=== PATIENT | female | born 1955 | race Caucasian/White ===

== ENCOUNTER 2020-09-11 13:06 | Outpatient (CLI) | payer OTHER, SELFPAY ==
--- NOTE | 2020-09-11 13:13 | MM_ITS ---
WS: [id number] BILATERAL SCREENING DIGITAL MAMMOGRAM WITH CAD HISTORY: SCREENING COMPARISON: 07/17/2018 and 06/17/2017 Bilateral CC and MLO views submitted. Computer aided detection analyzed. Breast composition: There are scattered areas of fibroglandular density. No suspicious masses, microc alcifications or architectural distortion. Benign scattered calcifications in each breast. MM/[id number] IMPRESSION: BI-RADS: 2-Benign FOLLOW UP: 1 Year Follow-up
== END 2020-09-11 13:07 | disposition home or self-care (01) ==
LOC: RADSHAW 13:10
PROVIDERS: Family Provider Internal Medicine; PCP Internal Medicine; Visit Provider Internal Medicine
DX: Z12.31 Encounter for screening mammogram for malignant neoplasm of breast (principal)
CPT/HCPCS: 77067

== ENCOUNTER → 2020-11-30 10:09 | Outpatient (BNVA) | payer OTHER, SELFPAY | PROVIDERS: Family Provider Internal Medicine; PCP Internal Medicine; Referring Provider Emergency Medicine Emergency Medical Services; Visit Provider Anesthesiology Pain Medicine | DX: G89.29 Other chronic pain (principal); M47.816 Spondylosis without myelopathy or radiculopathy, lumbar region; M54.42 Lumbago with sciatica, left side; M43.10 Spondylolisthesis, site unspecified | CPT/HCPCS: 99205 ==

== ENCOUNTER → 2020-12-13 13:34 | Outpatient (BNVA) | payer OTHER, SELFPAY | PROVIDERS: Family Provider Internal Medicine; PCP Emergency Medicine Emergency Medical Services; Visit Provider Anesthesiology Pain Medicine | DX: M47.816 Spondylosis without myelopathy or radiculopathy, lumbar region (principal) | CPT/HCPCS: 64493; 64494; 64495; J3490 ==

== ENCOUNTER → 2020-12-27 10:06 | Outpatient (BNVA) | payer OTHER, SELFPAY | PROVIDERS: Family Provider Internal Medicine; PCP Emergency Medicine Emergency Medical Services; Visit Provider Anesthesiology Pain Medicine | DX: M47.816 Spondylosis without myelopathy or radiculopathy, lumbar region (principal); M43.10 Spondylolisthesis, site unspecified | CPT/HCPCS: 99214 ==

== ENCOUNTER 2021-05-04 16:41 | Emergency (ER) | payer OTHER, SELFPAY ==
[2021-05-04 16:59] VITALS: BP 159/101; PULSE 87; RESP 16; TEMP 36.8; O2SAT 97
--- NOTE | 2021-05-04 17:06 | W.ED.WOUNDLC ---
Documented by User: DERRICK Nj 05/04/21 20:05 HPI - Wound/Laceration General: Chief Complaint: Wound/Laceration Stated Complaint: Strange brusing, not much pain Time Seen by Provider: 05/04/21 17:06 History of Present Illness: 65-year-old female comes in today for complaints of discoloration to the fourth and second digit on the right hand. Patient first noted some discoloration on the middle finger 3 days ago since then it has become dark in color. Patient denies any prolonged outdoor stay in the cold weather. Patient does have a history of hypertension, hyperlipidemia, and diabetes mellitus type 2. Patient reports no previous symptoms. Review of Systems Reinaldo/Lymph: Reports: easy bruising and other (Discoloration of the third and fifth digit of the right hand) PFSH ED PFSH: Medical History HTN (hypertension) Family History Father Cancer Mother Heart disease Diabetes Social History History of recent travel: No Physical Exam Const: COMMON NORMALS: alert HENMT: COMMON NORMALS: normocephalic HEAD & SCALP: normocephalic Neck/C-Spine: COMMON NORMALS: full ROM Resp: COMMON NORMALS: normal respiratory effort and clear to auscultation bilaterally AUSCULTATION: clear to auscultation bilaterally Cardio: COMMON NORMALS: regular rate and regular rhythm RATE: regular rate RHYTHM: regular rhythm Extremity: RIGHT UPPER EXTREMITY: Yes hand & digits (Patient has normal range of motion of the hand, partial discoloration of th) Right hand and digits: Yes inspection, Yes palpation, Yes ROM exam, Yes neurovascular exam (Bluish discoloration to the second and fourth digit) and Yes tendon exam Neuro: SENSORIUM/ORIENTATION: Yes alert Course Vital Signs: Vital signs: Vital Signs Temperature 98.2 F 05/04/21 16:59 Pulse Rate 84 05/04/21 20:34 Respiratory Rate 20 H 05/04/21 20:34 Blood Pressure 138/83 05/04/21 20:34 Pulse Oximetry 97 05/04/21 20:34 MDM - Wound/Laceration Medical Decision Making Patient came in for concerns of discoloration to the second and fourth digit. Patient denies any injury. Patient has ecchymosis to the fourth and second digit. Patient reports no history similar problems. Patient does have blood pressure and type 2 diabetes. Patient has normal range of motion and reports some discomfort to the fingers. Differential diagnosis includes Raynaud's phenomena, vasculitis, Buerger's disease, contusion. Laboratory values were unremarkable. Sed rate was 23. Arterial ultrasound of the upper extremity was unremarkable. I discussed patient with Dr. Patino he recommended treating for vasculitis and agreed with plan for starting a calcium channel shana. I will place patient on amlodipine 2-1/2 mg daily and start on 60 mg of prednisone daily with need for follow-up with him 5 days with primary care. Patient reported understanding of care plan. Lab Data : 05/04/21 17:34 05/04/21 17:34 Radiology Impressions Duplex Scan Upper Extremity Artery 05/04/21 17:19 IMPRESSION: No acute findings. Laboratory Results WBC 8.4 10^3/uL (4.0-10.0) 05/04/21 17:34 RBC 4.30 10^6/uL (4.1-5.3) 05/04/21 17:34 Hgb 13.6 g/dL (11.5-15.3) 05/04/21 17:34 Hct 41.0 % (37.0-47.0) 05/04/21 17:34 MCV 95.3 fl (81-99) 05/04/21 17:34 MCH 31.6 pg (28.0-34.0) 05/04/21 17:34 MCHC 33.2 g/dL (30.0-36.0) 05/04/21 17:34 RDW 12.5 % (12.1-15.1) 05/04/21 17:34 Plt Count 292 10^3/cmm (130-400) 05/04/21 17:34 MPV 9.4 fL (7.4-10.4) 05/04/21 17:34 Neut % (Auto) 44.3 % 05/04/21 17:34 Lymph % (Auto) 45.4 % 05/04/21 17:34 [place] % (Auto) 6.8 % 05/04/21 17:34 Eos % (Auto) 2.4 % 05/04/21 17:34 Baso % (Auto) 0.7 % 05/04/21 17:34 Neut # (Auto) 3.74 10^3/uL (1.8-7.7) 05/04/21 17:34 Lymph # (Auto) 3.8 10^3/uL (0.8-4.8) 05/04/21 17:34 [place] # (Auto) 0.6 10^3/uL (0.2-0.9) 05/04/21 17:34 Eos # (Auto) 0.2 10^3/uL (0.0-0.8) 05/04/21 17:34 Baso # (Auto) 0.1 10^3/uL (0.0-0.1) 05/04/21 17:34 Nucleated RBC % (auto) 0 % 05/04/21 17:34 Nucleated RBCs # 0.0 /100WBC 05/04/21 17:34 ESR 23 mm/hr (0-15) H 05/04/21 17:34 PT 12.80 SECONDS (12.1-14.9) 05/04/21 17:34 INR 0.94 (0.8-1.2) 05/04/21 17:34 APTT 33.0 SECONDS (23.9-36.7) 05/04/21 17:34 Sodium 139 mmol/L (136-145) 05/04/21 17:34 Potassium 3.8 mmol/L (3.5-5.1) 05/04/21 17:34 Chloride 95 mmol/L (98-107) L 05/04/21 17:34 Carbon Dioxide 27 mmol/L (22-29) 05/04/21 17:34 Anion Gap 20.8 (5-19) H 05/04/21 17:34 BUN 11 mg/dL (8-23) 05/04/21 17:34 Creatinine 0.6 mg/dL (0.5-0.9) 05/04/21 17:34 GFR Calculation 100.6 mL/min (90-130) 05/04/21 17:34 Glucose 96 mg/dL (65-115) 05/04/21 17:34 Calculated Osmolality 287 mOsm/kg (285-295) 05/04/21 17:34 Calcium 10.4 mg/dL (8.5-10.5) 05/04/21 17:34 Total Bilirubin 0.3 mg/dL (0.15-1.2) 05/04/21 17:34 AST 19 U/L (0-32) 05/04/21 17:34 ALT 19 U/L (0-33) 05/04/21 17:34 Alkaline Phosphatase 72 IU/L (35-105) 05/04/21 17:34 C-Reactive Protein 1.3 mg/L (0.0-4.9) 05/04/21 17:34 Total Protein 7.7 g/dL (6.6-8.7) 05/04/21 17:34 Albumin 4.8 g/dL (3.5-5.2) 05/04/21 17:34 Globulin 2.9 g/dL (1.3-4.6) 05/04/21 17:34 Discharge Plan Discharge Patient Disposition: Home Clinical Impression: Raynaud's phenomenon Qualifiers: Raynaud?s-associated gangrene presence: without gangrene Qualified Code(s): I73.00 - Raynaud's syndrome without gangrene Condition: Stable Prescriptions: New prednisone 20 mg tablet 60 mg PO DAILY 5 Days Qty: 15 0RF amlodipine 2.5 mg tablet 2.5 mg PO DAILY Qty: 30 0RF No Action rabeprazole 20 mg tablet,delayed release (DR/EC) 20 mg PO DAILY 0RF lisinopril 20 mg tablet 20 mg PO DAILY 0RF hydrochlorothiazide 25 mg tablet 25 mg PO DAILY 0RF cholecalciferol (vitamin D3) 1,250 mcg (50,000 unit) capsule 1,250 mcg PO DAILY 0RF multivitamin Tablet 1 tab PO DAILY 0RF aspirin [Adult Low Dose Aspirin] 81 mg tablet,delayed release (DR/EC) 81 mg PO DAILY 0RF Trulicity 1.5 mg/0.5 mL pen injector 1.5 mg SUBCUT .Q Weekly 0RF ursodiol 500 mg tablet 500 mg PO DAILY 0RF rosuvastatin 5 mg tablet 5 mg PO DAILY 0RF metformin 500 mg tablet extended release 24 hr 1,000 mg PO DAILY 0RF isosorbide mononitrate 30 mg tablet extended release 24 hr 15 mg PO DAILY 0RF vitamin B complex [B Complex-Vitamin B12] Tablet 1 tab PO DAILY 0RF Discharge Orders: Discharge ED (Routine); Ordered 05/04/21 Ordered By: Tony Meeks Referrals: Tigist Bang MD [Family Provider] - Josef Quintero DO [Primary Care Provider] - Discharge Diet: Usual diet Discharge Activity: Increase activity as tolerated Activity Restrictions/Additional Instructions: Home and rest. Drink plenty of water with medication. Follow-up with primary care in 3 to 5 days. The small vessels of your hands are becoming restricted causing decreased blood flow. This sometimes can be caused by rheumatic disease, inflammation of the blood vessels, or a highly sensitive vascular response to sensations. We have treated you with amlodipine which is a calcium channel shana that should help relax the blood vessels to improve blood flow. We have also started you on a steroid to help decrease inflammation. You need to take a whole aspirin, 325 mg, daily. I would recommend you take the aspirin and the steroid with food on your stomach. Follow-up with primary care. Return to the ER for new concerns. Coding Level of Care Code ED Staff Air Tactical Officer for Chg Fwd Exam Detailed Medical Decision Making Moderate Complexity Time Spent (min) 30 Documented by User: William Patino DO 05/05/21 01:54 HPI - Wound/Laceration General: Chief Complaint: Wound/Laceration Stated Complaint: Strange brusing, not much pain Time Seen by Provider: 05/04/21 17:06 PFSH ED PFSH: Medical History HTN (hypertension) Family History Father Cancer Mother Heart disease Diabetes Social History History of recent travel: No Course Vital Signs: Vital signs: Vital Signs Temperature 98.2 F 05/04/21 16:59 Pulse Rate 84 05/04/21 20:34 Respiratory Rate 20 H 05/04/21 20:34 Blood Pressure 138/83 05/04/21 20:34 Pulse Oximetry 97 05/04/21 20:34 MDM - Wound/Laceration Medical Decision Making Patient came in for concerns of discoloration to the second and fourth digit. Patient denies any injury. Patient has ecchymosis to the fourth and second digit. Patient reports no history similar problems. Patient does have blood pressure and type 2 diabetes. Patient has normal range of motion and reports some discomfort to the fingers. Differential diagnosis includes Raynaud's phenomena, vasculitis, Buerger's disease, contusion. Laboratory values were unremarkable. Sed rate was 23. Arterial ultrasound of the upper extremity was unremarkable. I discussed patient with Dr. Patino he recommended treating for vasculitis and agreed with plan for starting a calcium channel shana. I will place patient on amlodipine 2-1/2 mg daily and start on 60 mg of prednisone daily with need for follow-up with him 5 days with primary care. Patient reported understanding of care plan. This patient was originally seen by DERRICK Anderson.? I agree with his history, evaluation, and treatment. Lab Data : 05/04/21 17:34 05/04/21 17:34 Radiology Impressions Duplex Scan Upper Extremity Artery 05/04/21 17:19 IMPRESSION: No acute findings. Laboratory Results WBC 8.4 10^3/uL (4.0-10.0) 05/04/21 17:34 RBC 4.30 10^6/uL (4.1-5.3) 05/04/21 17:34 Hgb 13.6 g/dL (11.5-15.3) 05/04/21 17:34 Hct 41.0 % (37.0-47.0) 05/04/21 17:34 MCV 95.3 fl (81-99) 05/04/21 17:34 MCH 31.6 pg (28.0-34.0) 05/04/21 17:34 MCHC 33.2 g/dL (30.0-36.0) 05/04/21 17:34 RDW 12.5 % (12.1-15.1) 05/04/21 17:34 Plt Count 292 10^3/cmm (130-400) 05/04/21 17:34 MPV 9.4 fL (7.4-10.4) 05/04/21 17:34 Neut % (Auto) 44.3 % 05/04/21 17:34 Lymph % (Auto) 45.4 % 05/04/21 17:34 [place] % (Auto) 6.8 % 05/04/21 17:34 Eos % (Auto) 2.4 % 05/04/21 17:34 Baso % (Auto) 0.7 % 05/04/21 17:34 Neut # (Auto) 3.74 10^3/uL (1.8-7.7) 05/04/21 17:34 Lymph # (Auto) 3.8 10^3/uL (0.8-4.8) 05/04/21 17:34 [place] # (Auto) 0.6 10^3/uL (0.2-0.9) 05/04/21 17:34 Eos # (Auto) 0.2 10^3/uL (0.0-0.8) 05/04/21 17:34 Baso # (Auto) 0.1 10^3/uL (0.0-0.1) 05/04/21 17:34 Nucleated RBC % (auto) 0 % 05/04/21 17:34 Nucleated RBCs # 0.0 /100WBC 05/04/21 17:34 ESR 23 mm/hr (0-15) H 05/04/21 17:34 PT 12.80 SECONDS (12.1-14.9) 05/04/21 17:34 INR 0.94 (0.8-1.2) 05/04/21 17:34 APTT 33.0 SECONDS (23.9-36.7) 05/04/21 17:34 Sodium 139 mmol/L (136-145) 05/04/21 17:34 Potassium 3.8 mmol/L (3.5-5.1) 05/04/21 17:34 Chloride 95 mmol/L (98-107) L 05/04/21 17:34 Carbon Dioxide 27 mmol/L (22-29) 05/04/21 17:34 Anion Gap 20.8 (5-19) H 05/04/21 17:34 BUN 11 mg/dL (8-23) 05/04/21 17:34 Creatinine 0.6 mg/dL (0.5-0.9) 05/04/21 17:34 GFR Calculation 100.6 mL/min (90-130) 05/04/21 17:34 Glucose 96 mg/dL (65-115) 05/04/21 17:34 Calculated Osmolality 287 mOsm/kg (285-295) 05/04/21 17:34 Calcium 10.4 mg/dL (8.5-10.5) 05/04/21 17:34 Total Bilirubin 0.3 mg/dL (0.15-1.2) 05/04/21 17:34 AST 19 U/L (0-32) 05/04/21 17:34 ALT 19 U/L (0-33) 05/04/21 17:34 Alkaline Phosphatase 72 IU/L (35-105) 05/04/21 17:34 C-Reactive Protein 1.3 mg/L (0.0-4.9) 05/04/21 17:34 Total Protein 7.7 g/dL (6.6-8.7) 05/04/21 17:34 Albumin 4.8 g/dL (3.5-5.2) 05/04/21 17:34 Globulin 2.9 g/dL (1.3-4.6) 05/04/21 17:34 Discharge Plan Discharge Patient Disposition: Home Clinical Impression: Raynaud's phenomenon Qualifiers: Raynaud?s-associated gangrene presence: without gangrene Qualified Code(s): I73.00 - Raynaud's syndrome without gangrene Condition: Stable Prescriptions: New prednisone 20 mg tablet 60 mg PO DAILY 5 Days Qty: 15 0RF amlodipine 2.5 mg tablet 2.5 mg PO DAILY Qty: 30 0RF No Action rabeprazole 20 mg tablet,delayed release (DR/EC) 20 mg PO DAILY 0RF lisinopril 20 mg tablet 20 mg PO DAILY 0RF hydrochlorothiazide 25 mg tablet 25 mg PO DAILY 0RF cholecalciferol (vitamin D3) 1,250 mcg (50,000 unit) capsule 1,250 mcg PO DAILY 0RF multivitamin Tablet 1 tab PO DAILY 0RF aspirin [Adult Low Dose Aspirin] 81 mg tablet,delayed release (DR/EC) 81 mg PO DAILY 0RF Trulicity 1.5 mg/0.5 mL pen injector 1.5 mg SUBCUT .Q Weekly 0RF ursodiol 500 mg tablet 500 mg PO DAILY 0RF rosuvastatin 5 mg tablet 5 mg PO DAILY 0RF metformin 500 mg tablet extended release 24 hr 1,000 mg PO DAILY 0RF isosorbide mononitrate 30 mg tablet extended release 24 hr 15 mg PO DAILY 0RF vitamin B complex [B Complex-Vitamin B12] Tablet 1 tab PO DAILY 0RF Discharge Orders: Discharge ED (Routine); Ordered 05/04/21 Ordered By: Tony Meeks Referrals: Tigist Bang MD [Family Provider] - Josef Quintero DO [Primary Care Provider] - Discharge Diet: Usual diet Discharge Activity: Increase activity as tolerated Activity Restrictions/Additional Instructions: Home and rest. Drink plenty of water with medication. Follow-up with primary care in 3 to 5 days. The small vessels of your hands are becoming restricted causing decreased blood flow. This sometimes can be caused by rheumatic disease, inflammation of the blood vessels, or a highly sensitive vascular response to sensations. We have treated you with amlodipine which is a calcium channel shana that should help relax the blood vessels to improve blood flow. We have also started you on a steroid to help decrease inflammation. You need to take a whole aspirin, 325 mg, daily. I would recommend you take the aspirin and the steroid with food on your stomach. Follow-up with primary care. Return to the ER for new concerns. Coding Level of Care Code ED Staff Air Tactical Officer for [place] Fwd Exam Detailed Medical Decision Making Moderate Complexity Time Spent (min) 30
--- NOTE | 2021-05-04 17:19 | USR_ITS ---
PROCEDURE INFORMATION: Exam: US Duplex Right Upper Extremity Arteries Exam date and time: 05/04/2021 5:19 PM Age: 65 years old Clinical indication: Other: RT arm pain and discoloration of fingers; Arm, lower; Right; Additional info: Discoloration of digits, raynauds phen. TECHNIQUE: Imaging protocol: Right Real-time ultrasound scan of the arteries of the right upper extremity with 2-D paul scale, color Doppler flow and spectral waveform analysis. COMPARISON: No relevant prior studies available. FINDINGS: Right subclavian artery: No occlusion or significant stenosis. Normal waveform. Right axillary artery: No occlusion or significant stenosis. Normal waveform. Right brachial artery: No occlusion or significant stenosis. Normal waveform. Right radial artery: No occlusion or significant stenosis. Normal waveform. Right ulnar artery: No occlusion or significant stenosis. Normal waveform. US/[place] [id number] IMPRESSION: No acute findings.
[2021-05-04 17:45] LABS: Basophils # 0.1 10^3/uL (0.0-0.1); Basophils % 0.7 %; Eosinophils # 0.2 10^3/uL (0.0-0.8); Eosinophils % 2.4 %; Hemoglobin 13.6 g/dL (11.5-15.3); Lymphocytes # 3.8 10^3/uL (0.8-4.8); Lymphocytes % 45.4 %; Mean Corpuscular HGB Conc 33.2 g/dL (30.0-36.0); Mean Corpuscular Hemoglobin 31.6 pg (28.0-34.0); Mean Corpuscular Volume 95.3 fl (81-99); Mean Platelet Volume 9.4 fL (7.4-10.4); Monocytes # 0.6 10^3/uL (0.2-0.9); Monocytes % 6.8 %; Neutrophils # 3.74 10^3/uL (1.8-7.7); Neutrophils % 44.3 %; Nucleated Red Blood Cells % 0 %; Platelet Count 292 10^3/cmm (130-400); Red Cell Distribution Width 12.5 % (12.1-15.1); White Blood Count 8.4 10^3/uL (4.0-10.0)
[2021-05-04 17:58] LABS: INR 0.94 (0.8-1.2)
[2021-05-04 18:01] LABS: Erythrocyte Sedimentation Rate 23 mm/hr (0-15)
[2021-05-04 18:05] LABS: Alanine Aminotransferase 19 U/L (0-33); Albumin Level 4.8 g/dL (3.5-5.2); Alkaline Phosphatase 72 IU/L (35-105); Anion Gap 20.8 (5-19); Aspartate Amino Transferase 19 U/L (0-32); Blood Urea Nitrogen 11 mg/dL (8-23); C Reactive Protein 1.3 mg/L (0.0-4.9); Calcium 10.4 mg/dL (8.5-10.5); Carbon Dioxide 27 mmol/L (22-29); Chloride 95 mmol/L (98-107); Globulin 2.9 g/dL (1.3-4.6); Glomerular Filtration Rate 100.6 mL/min (90-130); Glucose 96 mg/dL (65-115); Osmolality Calculated 287 mOsm/kg (285-295); Potassium 3.8 mmol/L (3.5-5.1); Sodium 139 mmol/L (136-145); Total Bilirubin 0.3 mg/dL (0.15-1.2); Total Protein 7.7 g/dL (6.6-8.7)
[2021-05-04 20:34] VITALS: BP 138/83; PULSE 84; RESP 20; O2SAT 97
[2021-05-04] MEDS: amlodipine 5 mg Tablet 2.5 MG PO (20:34)
[2021-05-04] MEDS: predniSONE 20 mg Tablet 60 MG PO (20:34)
[2021-05-04] MEDS: aspirin 325 mg Tablet PO (20:34)
== END 2021-05-04 20:35 | disposition home or self-care (01) ==
PROVIDERS: Emergency Provider Nurse Practitioner Family; Family Provider Internal Medicine; PCP Emergency Medicine Emergency Medical Services
DX: I73.00 Raynaud's syndrome without gangrene (principal); Z79.82 Long term (current) use of aspirin; Z79.84 Long term (current) use of oral hypoglycemic drugs; I10 Essential (primary) hypertension
CPT/HCPCS: 80053; 85025; 85610; 85651; 85730; 86140; 93931; 99283; J7512

== ENCOUNTER 2021-08-06 13:22 | Emergency (ER) | payer OTHER, MEDICARE, SELFPAY ==
[2021-08-06 13:28] VITALS: BP 154/105; PULSE 90; RESP 18; TEMP 36.4; O2SAT 93; BMI 40.1
--- NOTE | 2021-08-06 13:36 | W.ED.CHESTPA ---
HPI - Chest Pain General: Chief Complaint: Chest Pain Stated Complaint: abnormal heart Time Seen by Provider: 08/06/21 13:36 History of Present Illness: Ms. Munson is a 65-year-old lady with history of hypertension, diabetes, hyperlipidemia who presents to the emergency department due to chest pain and abnormal EKG. She reports about 1 week history of perhaps increased indigestion though does have a history of frequent indigestion and approximately 3 days ago was hugged by her and felt and heard a popping sensation in the right lateral/anterior chest right under her breast. She immediately had discomfort which has persisted. This is sharp and aching in quality and worse with movement/bending over/deep inspiration. [facility] and [facility] x-ray and rib series which was negative however EKG was different than prior and they referred her to the emergency department. Intensity symptoms is moderate. Course has persisted. No other typical cardiac features. No other specific changes in health, exacerbating, or alleviating factors identified. Onset (ago): day(s) Timing of current episode: constant Onset: other Pain location: right chest Review of Systems General: Reports: 10 or more systems reviewed and unremarkable except in HPI and below PFSH ED PFSH: Medical History HTN (hypertension) Family History Father Cancer Mother Heart disease Diabetes Social History Smoking and tobacco status: former smoker History of recent travel: No Physical Exam Const: COMMON NORMALS: alert GENERAL APPEARANCE: cooperative and well developed HENMT: COMMON NORMALS: normocephalic and atraumatic HEAD & SCALP: normocephalic and atraumatic THROAT: posterior oropharynx normal Eye: COMMON NORMALS: conjunctivae normal CONJUNCTIVA: Yes conjunctivae normal SCLERA: sclerae normal Neck/C-Spine: COMMON NORMALS: supple GENERAL: Yes trachea midline Chest: OTHER: Tender to palpation right lateral ribs, mild, no crepitus or deformity appreciated Resp: COMMON NORMALS: clear to auscultation bilaterally EFFORT & INSPECTION: Yes able to speak in complete sentences AUSCULTATION: clear to auscultation bilaterally Cardio: COMMON NORMALS: regular rate and regular rhythm RATE: regular rate RHYTHM: regular rhythm GI: COMMON NORMALS: Soft to palpation PALPATION: Yes Soft to palpation and No Tenderness to palpation present (GI) PERCUSSION: normal to percussion Extremity: GENERAL: Yes normal exam except as noted and No edema Neuro: COMMON NORMALS: moves all extremities SENSORIUM/ORIENTATION: Yes alert and No Orientation impaired Psych: COMMON NORMALS: mental status grossly normal and Normal thought process present THOUGHT PROCESS: Normal thought process present Course ED course: - Patient was seen and evaluated by me at bedside - Patient placed on cardiac monitors, IV access obtained - Initial evaluation notable for end as above - Labs personally interpreted by me. EKG from 1334 end 1419 personally interpreted by me showing sinus rhythm with no STEMI. - Labs notable for no significant hematologic or metabolic abnormality to explain symptoms. Delta troponin negative. -[facility] obtained showing 1 view chest x-ray and right-sided rib series without acute pathology identified. - Upon serial reexamination after treatment the patient was similar - Based on patient history, evaluation, and testing as interpreted the most likely cause of the patient's condition is chest pain of his uncertain etiology. - The results of ED evaluation were discussed with the patient including prescriptions and/or symptomatic cares (if applicable) including appropriate and responsible use, followup plan, and return precautions. The patient verbalized understanding and felt safe for discharge. - Patient discharged in satisfactory condition. Note: Click bubbles or prepopulated giordano in note writing are used for assistance with data collection and billing and are inherently more limited than narrative and other text portions of this note. Please use narrative for additional clinical history and defer to narrative/free test for any case of contradictory information. If information appears in only free text or click bubble it should be considered present or absent as reported. Please contact note television writer for clarifications of clinical information or contradictory information. MDM is a brief summary, contradictory or erroneous seeming information should be clarified and full note should be reviewed. Vital Signs: Vital signs: Vital Signs Temperature 97.6 F 08/06/21 13:28 Pulse Rate 20 L 08/06/21 16:15 Respiratory Rate 86 H 08/06/21 16:15 Blood Pressure 134/92 08/06/21 16:15 Pulse Oximetry 99 08/06/21 16:15 MDM - Chest Pain Medical Decision Making 65-year-old lady presenting with atypical chest pain. No acute pathology identified on laboratory studies or previously obtained x-rays. Satisfactory for outpatient management with close cardiology follow-up. Medical Records I reviewed the patient's medical records. Lab Data I reviewed the patient's lab results. : 08/06/21 14:00 08/06/21 14:00 Laboratory Results WBC 8.4 10^3/uL (4.0-10.0) 08/06/21 14:00 RBC 4.25 10^6/uL (4.1-5.3) 08/06/21 14:00 Hgb 13.4 g/dL (11.5-15.3) 08/06/21 14:00 Hct 40.3 % (37.0-47.0) 08/06/21 14:00 MCV 94.8 fl (81-99) 08/06/21 14:00 MCH 31.5 pg (28.0-34.0) 08/06/21 14:00 MCHC 33.3 g/dL (30.0-36.0) 08/06/21 14:00 RDW 12.1 % (12.1-15.1) 08/06/21 14:00 Plt Count 314 10^3/cmm (130-400) 08/06/21 14:00 MPV 9.9 fL (7.4-10.4) 08/06/21 14:00 Neut % (Auto) 41.6 % 08/06/21 14:00 Lymph % (Auto) 48.9 % 08/06/21 14:00 [place] % (Auto) 6.4 % 08/06/21 14:00 Eos % (Auto) 2.1 % 08/06/21 14:00 Baso % (Auto) 0.8 % 08/06/21 14:00 Neut # (Auto) 3.50 10^3/uL (1.8-7.7) 08/06/21 14:00 Lymph # (Auto) 4.1 10^3/uL (0.8-4.8) 08/06/21 14:00 [place] # (Auto) 0.5 10^3/uL (0.2-0.9) 08/06/21 14:00 Eos # (Auto) 0.2 10^3/uL (0.0-0.8) 08/06/21 14:00 Baso # (Auto) 0.1 10^3/uL (0.0-0.1) 08/06/21 14:00 Nucleated RBC % (auto) 0 % 08/06/21 14:00 Nucleated RBCs # 0.0 /100WBC 08/06/21 14:00 D-Dimer 0.22 ug/mIFEU (0-0.59) 08/06/21 14:00 Sodium 137 mmol/L (136-145) 08/06/21 14:00 Potassium 3.6 mmol/L (3.5-5.1) 08/06/21 14:00 Chloride 96 mmol/L (98-107) L 08/06/21 14:00 Carbon Dioxide 28 mmol/L (22-29) 08/06/21 14:00 Anion Gap 16.6 (5-19) 08/06/21 14:00 BUN 11 mg/dL (8-23) 08/06/21 14:00 Creatinine 0.7 mg/dL (0.5-0.9) 08/06/21 14:00 GFR Calculation 84.2 mL/min (90-130) L 08/06/21 14:00 Glucose 89 mg/dL (65-115) 08/06/21 14:00 Calculated Osmolality 283 mOsm/kg (285-295) L 08/06/21 14:00 Calcium 10.2 mg/dL (8.5-10.5) 08/06/21 14:00 Total Bilirubin 0.4 mg/dL (0.15-1.2) 08/06/21 14:00 AST 19 U/L (0-32) 08/06/21 14:00 ALT 24 U/L (0-33) 08/06/21 14:00 Alkaline Phosphatase 73 IU/L (35-105) 08/06/21 14:00 Troponin T Baseline 8 ng/L (0-10) 08/06/21 14:00 Troponin T 120 Minute 7.01 ng/L (0-10) 08/06/21 15:51 Delta Troponin T -0.99 ABS# (0-10) L 08/06/21 15:51 NT-Pro-B Natriuret Pep 75 pg/mL (0-125) 08/06/21 14:00 Total Protein 7.8 g/dL (6.6-8.7) 08/06/21 14:00 Albumin 4.6 g/dL (3.5-5.2) 08/06/21 14:00 Globulin 3.2 g/dL (1.3-4.6) 08/06/21 14:00 Discharge Plan Discharge Patient Disposition: Home Clinical Impression: Chest pain Condition: Stable Prescriptions: No Action rabeprazole 20 mg tablet,delayed release (DR/EC) 20 mg PO DAILY 0RF lisinopril 20 mg tablet 20 mg PO DAILY 0RF hydrochlorothiazide 25 mg tablet 25 mg PO DAILY 0RF cholecalciferol (vitamin D3) 1,250 mcg (50,000 unit) capsule 1,250 mcg PO DAILY 0RF multivitamin Tablet 1 tab PO DAILY 0RF aspirin [Adult Low Dose Aspirin] 81 mg tablet,delayed release (DR/EC) 81 mg PO DAILY 0RF Trulicity 1.5 mg/0.5 mL pen injector 1.5 mg SUBCUT .Q Weekly 0RF ursodiol 500 mg tablet 500 mg PO DAILY 0RF rosuvastatin 5 mg tablet 5 mg PO DAILY 0RF metformin 500 mg tablet extended release 24 hr 1,000 mg PO DAILY 0RF isosorbide mononitrate 30 mg tablet extended release 24 hr 15 mg PO DAILY 0RF vitamin B complex [B Complex-Vitamin B12] Tablet 1 tab PO DAILY 0RF Discharge Orders: Discharge ED (Routine); Ordered 08/06/21 Ordered By: Cuauhtemoc Fernandes Referrals: Tigist Bang MD [Primary Care Provider] - Discharge Diet: Usual diet Discharge Activity: Resume usual activity Patient Instructions: Chest Pain (ED) Activity Restrictions/Additional Instructions: Thank you for visiting the emergency department. You were seen and evaluated for chest pain. The exact cause of your symptoms is unclear however would be atypical for cardiac cause. Given your medical history as well as changes in EKG I do believe that you need to require further testing in the outpatient setting. Please attend your cardiology appointment as scheduled. Please ensure, given the possibility of rib fracture, that you are taking deep breaths and decreasing risk of pneumonia. Return to the emergency department for worsening symptoms or anything else that you are concerned about a feel needs emergency department evaluation. Coding Level of Care Code ED Heating Plant Superintendent for Chg Fwd Exam Comprehensive
--- NOTE | 2021-08-06 13:48 | ECG_ITS ---
[facility] Test Date: 2021-08-06 Pat Name: Genny Munson Department: Room: Gender: Female Appraisal Technician: : 1955 Requested By: Cuauhtemoc Fernandes Order Number: [id number] Jessica MD: Eze Garcia M.D. Measurements Intervals [place] Rate: 75 P: 60 [place]: 158 QRS: -46 QRSD: 88 T: 61 QT: 395 QTc: 443 Interpretive Statements SINUS RHYTHM LEFT ANTERIOR FASCICULAR BLOCK [QRS AXIS <= -45, QR IN I, RS IN II] POSSIBLE ANTERIOR MYOCARDIAL INFARCTION , PROBABLY OLD [30 ms Q WAVE IN V3/V4, OR R < 0.2 mV IN V4] Compared to ECG 01/15/2018 13:59:44 Left anterior fascicular block now present Left-axis deviation no longer present Myocardial infarct finding still present Electronically Signed On 08-06-2021 16:33:15 CDT by Eze Garcia M.D. [email or web address]/store/[id number]
[2021-08-06 14:09] LABS: Basophils # 0.1 10^3/uL (0.0-0.1); Basophils % 0.8 %; Eosinophils # 0.2 10^3/uL (0.0-0.8); Eosinophils % 2.1 %; Hematocrit 40.3 % (37.0-47.0); Hemoglobin 13.4 g/dL (11.5-15.3); Lymphocytes # 4.1 10^3/uL (0.8-4.8); Lymphocytes % 48.9 %; Mean Corpuscular HGB Conc 33.3 g/dL (30.0-36.0); Mean Corpuscular Hemoglobin 31.5 pg (28.0-34.0); Mean Corpuscular Volume 94.8 fl (81-99); Mean Platelet Volume 9.9 fL (7.4-10.4); Monocytes # 0.5 10^3/uL (0.2-0.9); Monocytes % 6.4 %; Neutrophils % 41.6 %; Nucleated Red Blood Cells % 0 %; Platelet Count 314 10^3/cmm (130-400); Red Blood Count 4.25 10^6/uL (4.1-5.3); Red Cell Distribution Width 12.1 % (12.1-15.1); White Blood Count 8.4 10^3/uL (4.0-10.0)
[2021-08-06 14:29] LABS: D Dimer 0.22 ug/mIFEU (0-0.59)
[2021-08-06 14:30] VITALS: PULSE 74; RESP 18
[2021-08-06 14:31] LABS: Troponin(5th) Baseline 8 ng/L (0-10)
[2021-08-06 14:40] LABS: Alanine Aminotransferase 24 U/L (0-33); Albumin Level 4.6 g/dL (3.5-5.2); Alkaline Phosphatase 73 IU/L (35-105); Anion Gap 16.6 (5-19); Aspartate Amino Transferase 19 U/L (0-32); Blood Urea Nitrogen 11 mg/dL (8-23); Calcium 10.2 mg/dL (8.5-10.5); Carbon Dioxide 28 mmol/L (22-29); Chloride 96 mmol/L (98-107); Globulin 3.2 g/dL (1.3-4.6); Glomerular Filtration Rate 84.2 mL/min (90-130); Glucose 89 mg/dL (65-115); NT Pro B Type Natriuretic Pept 75 pg/mL (0-125); Osmolality Calculated 283 mOsm/kg (285-295); Potassium 3.6 mmol/L (3.5-5.1); Sodium 137 mmol/L (136-145); Total Bilirubin 0.4 mg/dL (0.15-1.2); Total Protein 7.8 g/dL (6.6-8.7)
[2021-08-06 15:30] VITALS: BP 134/92; PULSE 82; RESP 18; O2SAT 96
--- NOTE | 2021-08-06 15:48 | ECG_ITS ---
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 Measurements Intervals [place] Rate: 83 P: 62 IN: 153 QRS: -54 QRSD: 90 T: 60 QT: 381 QTc: 448 Interpretive Statements SINUS RHYTHM PATTERN CONSISTENT WITH PULMONARY DISEASE LEFT ANTERIOR FASCICULAR BLOCK [QRS AXIS <= -45, QR IN I, RS IN II] Compared to ECG 01/15/2018 13:59:44 Left anterior fascicular block now present Left-axis deviation no longer present Myocardial infarct finding no longer present Electronically Signed On 08-06-2021 16:36:45 CDT by Eze Garcia M.D. [email or web address].[facility].[employer]/store/NU/[id number] frederic
[2021-08-06 16:15] VITALS: BP 134/92; PULSE 20; RESP 86; O2SAT 99
[2021-08-06 16:28] LABS: Troponin 5 2HR 7.01 ng/L (0-10)
[2021-08-06 17:05] LABS: Troponin 5 2HR Delta -0.99 ABS# (0-10)
--- NOTE | 2021-08-07 16:33 | DCPLANNER ---
Addendum entered by Edda Jo 04/11/22 13:05: rainbow trout farm manager received notification from centralized scheduling, that patient did not want the tests ordered. Original Note: rainbow trout farm manager had message to schedule an outpatient stress test and echocardiogram for patient. rainbow trout farm manager spoke with patient and confirmed that patient wants the test ordered and that patient sees Dr. Bang for primary care. rainbow trout farm manager faxed patients information to centralized scheduling, who will call patient with appointment information.
== END 2021-08-06 16:18 | disposition home or self-care (01) ==
PROVIDERS: Emergency Provider Emergency Medicine; PCP Internal Medicine
DX: R07.89 Other chest pain (principal); I10 Essential (primary) hypertension; E11.9 Type 2 diabetes mellitus without complications; E78.5 Hyperlipidemia, unspecified; Z82.49 Family history of ischemic heart disease and other diseases of the circulatory system; Z87.891 Personal history of nicotine dependence; Z79.82 Long term (current) use of aspirin; Z79.899 Other long term (current) drug therapy
CPT/HCPCS: 80053; 83880; 84484; 85025; 85378; 93005; 99284

== ENCOUNTER → 2021-08-08 14:31 | Outpatient (BNVA) | payer MEDICARE, OTHER, SELFPAY | PROVIDERS: PCP Internal Medicine; Visit Provider Internal Medicine Cardiovascular Disease | DX: R07.9 Chest pain, unspecified (principal); I10 Essential (primary) hypertension; Z87.891 Personal history of nicotine dependence | CPT/HCPCS: 99213 ==

== ENCOUNTER 2021-10-16 13:03 | Outpatient (CLI) | payer MEDICARE, OTHER, SELFPAY ==
--- NOTE | 2021-10-16 13:24 | MM_ITS ---
WS: [id number] BILATERAL 3D TOMOSYNTHESIS DIGITAL SCREENING MAMMOGRAPHY WITH CAD CLINICAL INFORMATION: SCREENING HISTORY: Screening mammogram. No current complaints. COMPARISON: September 11, 2020 TECHNIQUE: Bilateral CC and MLO views. FINDINGS: Scattered fibroglandular densities bilaterally. Incidental punctate calcifications. Asymmetric densit y upper outer RIGHT breast posterior depth is stable compared to 2015. No suspicious focal mass, asym metry, calcifications, or architectural distortion. No evidence of malignancy. MM/[place] [id number] IMPRESSION: BI-RADS: 2-Benign FOLLOW UP: 1 Year Follow-up Recommend return to annual screening mammography.
== END 2021-10-16 13:04 | disposition home or self-care (01) ==
LOC: RAD 13:05
PROVIDERS: PCP Internal Medicine; Visit Provider Internal Medicine
DX: Z12.31 Encounter for screening mammogram for malignant neoplasm of breast (principal)
CPT/HCPCS: 77063; 77067

== ENCOUNTER 2022-01-04 12:57 | Outpatient (CLI) | payer MEDICARE, OTHER, SELFPAY ==
--- NOTE | 2022-01-04 13:43 | XR_ITS ---
WS: [id number] DEXA (DUAL ENERGY X-RAY ABSORPTIOMETRY) Bone mineral density was performed using a [employer] machine. HISTORY: ASYMPTOMATIC POSTMENOPAUSAL STATUS COMPARISON: 04/17/2018 Lumbar spine BMD (L1-L4): 1.056 g/cm2 T score: -1.0 Z score: -0.6 Total hip BMD: Left: 0.987 g/cm2. T score: -0.2 Z score: 0.2 Right: 0.966 g/cm2. T score: -0.3 Z score: 0.0 10 year probability of a major osteoporotic fracture is 15%. Compared to the prior study from 04/17/2018. Lumbar spine bone mineral density has increased by 1.3%. Bilateral hips bone mineral density has decreased by 1.6%. XR/XR DEXA axial skeleton* [id number] IMPRESSION: NORMAL BONE MINERAL DENSITY based upon the WHO classification for females. No significant change in bone mineral density within the hips or spine.
== END 2022-01-04 12:58 | disposition home or self-care (01) ==
LOC: RAD 12:58
PROVIDERS: PCP Internal Medicine; Visit Provider Internal Medicine
DX: Z78.0 Asymptomatic menopausal state (principal)
CPT/HCPCS: 77080

== ENCOUNTER 2022-02-07 13:39 | Outpatient (CLI) | payer MEDICARE, OTHER, SELFPAY ==
--- NOTE | 2022-02-07 13:52 | XR_ITS ---
WS: [id number] Left hip, 2 views, 02/07/2022 Clinical Data: PAIN IN LEFT HIP Comparison: Left hip, 01/15/2017. Findings: No fractures or dislocations are seen. The hip joint is intact. The soft tissues are not remarkable. The adjacent pelvis is normal. The left hip shows no narrowing, erosion, sclerosis or fragmentation of the left femoral head. XR/XR hip LT 2-3V wo/w pel* [id number] Impression: Negative left hip. Tonnis classification: grade 0: normal radiographs
== END 2022-02-07 13:40 | disposition home or self-care (01) ==
PROVIDERS: PCP Internal Medicine; Visit Provider Internal Medicine
DX: M25.552 Pain in left hip (principal)
CPT/HCPCS: 73502

== ENCOUNTER → 2022-03-20 13:56 | Outpatient (BNVA) | payer MEDICARE, OTHER, SELFPAY | PROVIDERS: PCP Internal Medicine; Visit Provider Internal Medicine Cardiovascular Disease | DX: I10 Essential (primary) hypertension (principal); E78.5 Hyperlipidemia, unspecified; E11.9 Type 2 diabetes mellitus without complications; Z79.84 Long term (current) use of oral hypoglycemic drugs; G47.30 Sleep apnea, unspecified; E66.01 Morbid (severe) obesity due to excess calories; Z68.41 Body mass index [BMI] 40.0-44.9, adult; Z87.891 Personal history of nicotine dependence | CPT/HCPCS: 99214 ==

== ENCOUNTER 2022-12-03 09:51 | Outpatient (CLI) | payer OTHER, SELFPAY ==
--- NOTE | 2022-12-03 10:03 | MM_ITS ---
WS: [email or web address] VIEWS: MLO and CC views both breasts. 3D digital tomosynthesis is also included in this exam. Comparison made with prior exam of 10/03/2014, 03/29/2016, 06/17/2017, 07/17/2018, 09/11/2020, 10/16/2021.. Findings: There was no sign of mass, architectural distortion or suspicious calcification in either breast. Sta ble appearing nodular densities in both breasts. There are scattered areas of fibroglandular density. Impression: MM/[place] [id number] BI-RADS: 2-Benign FOLLOW-UP: 1 Year Follow-up This mammogram was also analyzed by the Computer Aided Detection System R2 Imag e Etched Circuit Processor.
== END 2022-12-03 09:52 | disposition home or self-care (01) ==
LOC: RAD 09:54 → MOBLMAM 10:02
PROVIDERS: PCP Internal Medicine; Visit Provider Emergency Medicine Emergency Medical Services
DX: Z12.31 Encounter for screening mammogram for malignant neoplasm of breast (principal)
CPT/HCPCS: 77063; 77067

== ENCOUNTER → 2022-12-18 14:49 | Outpatient (BNVA) | payer MEDICARE, OTHER, SELFPAY | PROVIDERS: PCP Internal Medicine; Visit Provider Internal Medicine Cardiovascular Disease | DX: I10 Essential (primary) hypertension (principal); E78.5 Hyperlipidemia, unspecified; E11.9 Type 2 diabetes mellitus without complications; G47.30 Sleep apnea, unspecified; E66.01 Morbid (severe) obesity due to excess calories; Z68.41 Body mass index [BMI] 40.0-44.9, adult; Z87.891 Personal history of nicotine dependence; Z79.84 Long term (current) use of oral hypoglycemic drugs | CPT/HCPCS: 99214 ==

== ENCOUNTER 2023-01-06 12:57 | Outpatient (CLI) | payer OTHER, SELFPAY ==
--- NOTE | 2023-01-06 13:03 | XR_ITS ---
WS: [email or web address] SCREENING DEXA SCAN Notch CLINICAL INFORMATION: SCREENING COMPARISON: None. FINDINGS: The L1-L4 bone mineral density measures 1.055 g/cm2. This corresponds to a T score score of -1.0 and Z score of -0.6. Left femoral neck bone mineral density measures 0.995 g/cm2. This corresponds to a T score of -0.1 an d Z score of 0.3. Right femoral neck bone mineral density measures 0.978 g/cm2. This corresponds to a T score -0.2of an d Z score of 0.2. Mean femoral neck bone mineral density measures 0.987 g/cm2. This corresponds to a T score of -0.2 an d Z score of 0.3. IMPRESSION: Osteopenia lumbar spine at the lower end of the range. Normal bone mineralization femoral necks. Nelda ent's FRAX calculated 10 year probability for major osteoporotic fracture is 15.2% and osteoporotic h ip fracture is 1.1%. Bone mineral density lumbar spine decrease -0.1% Bone mineral density femoral necks increased 1.0%
== END 2023-01-06 12:58 | disposition home or self-care (01) ==
PROVIDERS: PCP Internal Medicine; Visit Provider Emergency Medicine Emergency Medical Services
DX: Z13.820 Encounter for screening for osteoporosis (principal); M85.88 Other specified disorders of bone density and structure, other site
CPT/HCPCS: 77080

== ENCOUNTER 2023-05-27 08:28 | Outpatient (CLI) | payer MEDICARE, OTHER, SELFPAY ==
[2023-05-27 08:53] VITALS: BMI 38.1
--- NOTE | 2023-05-27 09:00 | NMCV_ITS ---
NM desi perf SPECT r/s* [id number] Genny Munson Age: 67 Gender: F : 1955 Exam Date: 05/27/2023 09:08 Ordering Phys: Tigist Bang MD Technologist: BRANT Dover Exam Location: [facility] Indications: CHEST PAIN STRESS TEST Please see separate stress test report in [facility] for full findings IMAGE PROTOCOL Rest/Stress 1 Lexiscan Day Radiopharmaceutical Dose (mCi) Administration Site Administered by Rest: Tc-99m 10.6 IV BRANT Churchill Sestamibi Stress:Tc-99m 32.8 IV BRANT Churchill Sestamibi Rest: 27-May-2023 60 Discovery 630 Stress: 27-May-2023 30 Discovery 630 0.4mg Lexiscan. Images obtained in supine and prone position. SPECT RESULTS Technical Quality: Excellent Raw Data Analysis: Normal Image Corrections: No attenuation or motion correction applied Summed Stress Score: 3 Summed Rest Score: 6 Summed Difference Score: 0 PERFUSION FINDINGS Small to moderate area of minimal to moderately decreased tracer uptake involving the mid inferolateral and apical lateral region with no significant reversibility. FUNCTIONAL RESULTS (calculated via Gated SPECT) Stress Image LV EF (%): 70 Stress EDV (mL):97 TID: 1.08 Stress ESV (mL):29 FUNCTIONAL FINDINGS: Segmental wall motion analysis revealing no gross wall motion abnormalities IMPRESSIONS 1. Myocardial perfusion imaging revealing a small to moderate area of minimal to moderately decreased persistent tracer uptake involving the apical lateral and mid inferolateral regions, suggesting myocardial scarring/hydration artifact 2. Normal LV ejection fraction 70%. 3. LV wall motion analysis revealing no gross wall motion abnormalities. 4. Normal LV volume Compared to the study from 06/17/2017, no evidence of ischemia in the current study Dr Gerard Pizano MD [facility] (Electronically Signed) Final Date: 28 May 2023 09:02 S
--- NOTE | 2023-05-27 09:00 | ECG_ITS ---
[facility] Test Date: 2023-05-27 Pat Name: Genny Munson Department: Room: Gender: Female Diamond Selector: Pam Lopez : 1955 Requested By: Tigist Montes Order Number: [id number] Jessica MD: Gerard Pizano M.D. Interpretive Statements NAME OF STUDY: LEXISCAN SESTAMIBI STRESS TEST INDICATION: Chest Pain, PROCEDURE: At the baseline, the EKG revealed normal sinus rhythm with a poor R wave progression. Normal ST Ts. Some nonspecific ST-T changes. The baseline heart was 75 bpm with a blood pressue of 122/75 mm of Hg Lexiscan was infused over a period of 20 seconds. A total of 0.4 milligrams of Lexiscan was infused. The stress phase was continued for a total of 5 minutes. Heart rate at the end of the stress phase was 82 bpm with a blood pressure 133/65 mm of Hg. The EKG at the peak infusion revealed no significant changes. Sestamibi was injected 20 seconds after the Lexiscan infusion. Heart rate at the end of the recovery phase was 82 bpm with a blood pressure of 132/71 mm of Hg. CONCLUSION: 1. No significant EKG changes with the LexiScan infusion 2. No LexiScan induced chest pain or cardiac arrhythmia 3. Normal blood pressure and heart rate response 4. Sestamibi/sestamibi perfusion scan pending; see separate report. Electronically Signed On 05-31-2023 14:50:57 MANAGER PROGRAMS by Gerard Pizano M.D. [email or web address].ZAP/store/OM/[id number]
[2023-05-27] MEDS: regadenoson 0.4 Mg/5 ml Syringe 0.400000000000000022 MG IVP (10:15)
[2023-05-27 10:16] VITALS: BP 132/71; PULSE 78
== END 2023-05-27 08:29 | disposition home or self-care (01) ==
LOC: RAD 08:29
PROVIDERS: PCP Internal Medicine; Visit Provider Internal Medicine
DX: R07.9 Chest pain, unspecified (principal)
CPT/HCPCS: 36415; 78452; 93017; 93306; 96374; A9500; J2785

== ENCOUNTER → 2023-06-19 10:01 | Outpatient (BNVA) | payer OTHER, SELFPAY | PROVIDERS: PCP Emergency Medicine Emergency Medical Services; Visit Provider Nurse Practitioner Family | DX: I10 Essential (primary) hypertension (principal); Z87.891 Personal history of nicotine dependence | CPT/HCPCS: 99213 ==

== ENCOUNTER → 2023-06-24 09:03 | Outpatient (BNVA) | payer OTHER, SELFPAY | PROVIDERS: PCP Emergency Medicine Emergency Medical Services; Visit Provider Podiatrist Foot & Ankle Surgery | DX: M19.071 Primary osteoarthritis, right ankle and foot; E11.9 Type 2 diabetes mellitus without complications; Z79.84 Long term (current) use of oral hypoglycemic drugs | CPT/HCPCS: 73600; 73610; 73630; 99203 ==

== ENCOUNTER 2023-07-01 09:28 | Outpatient (RCR) | payer OTHER, SELFPAY | END 2023-07-06 23:59 | disposition home or self-care (01) | LOC: SPT 09:28 | PROVIDERS: PCP Internal Medicine; Visit Provider Emergency Medicine Emergency Medical Services | DX: M25.571 Pain in right ankle and joints of right foot (principal) | CPT/HCPCS: 97161 ==

== ENCOUNTER → 2023-09-24 14:46 | Outpatient (BNVA) | payer OTHER, SELFPAY | PROVIDERS: PCP Internal Medicine; Visit Provider Internal Medicine Cardiovascular Disease | DX: I10 Essential (primary) hypertension (principal); K21.9 Gastro-esophageal reflux disease without esophagitis; Z87.891 Personal history of nicotine dependence | CPT/HCPCS: 99213 ==

== ENCOUNTER 2023-12-09 08:46 | Outpatient (CLI) | payer OTHER, SELFPAY ==
--- NOTE | 2023-12-09 08:50 | MM_ITS ---
WS: [id number] BILATERAL 3D TOMOSYNTHESIS DIGITAL SCREENING MAMMOGRAPHY WITH CAD CLINICAL INFORMATION: SCREENING HISTORY: Screening mammogram. No current complaints. COMPARISON: 2022 TECHNIQUE: Bilateral CC and MLO views. FINDINGS: Scattered fibroglandular densities bilaterally. No suspicious focal mass, asymmetry, calcifications, or architectural distortion. No evidence of malignancy. Few incidental punctate calcifications. MM/[place] [id number] IMPRESSION: DENSITY: There are scattered areas of fibroglandular density. BI-RADS: 2 - Benign. FOLLOW UP: 1 Year Follow-up Recommend return to annual screening mammography.
== END 2023-12-09 08:47 | disposition home or self-care (01) ==
LOC: RAD 08:47
PROVIDERS: PCP Internal Medicine; Visit Provider Nurse Practitioner Family
DX: Z12.31 Encounter for screening mammogram for malignant neoplasm of breast (principal); R92.323 Mammographic fibroglandular density, bilateral breasts; R92.1 Mammographic calcification found on diagnostic imaging of breast
CPT/HCPCS: 77063; 77067

== ENCOUNTER → 2024-02-24 15:50 | Outpatient (BNVA) | payer OTHER, SELFPAY | PROVIDERS: PCP Internal Medicine; Visit Provider Podiatrist Foot & Ankle Surgery | DX: M19.071 Primary osteoarthritis, right ankle and foot; E11.9 Type 2 diabetes mellitus without complications; Z79.84 Long term (current) use of oral hypoglycemic drugs | CPT/HCPCS: 99213 ==

== ENCOUNTER 2024-03-22 09:24 | Outpatient (RCR) | payer OTHER, SELFPAY | END 2024-04-06 23:59 | disposition home or self-care (01) | LOC: SPT 09:24 | PROVIDERS: Visit Provider Podiatrist Foot & Ankle Surgery | DX: M76.821 Posterior tibial tendinitis, right leg (principal) | CPT/HCPCS: 97110; 97161 ==

== ENCOUNTER → 2024-03-25 09:02 | Outpatient (BNVA) | payer OTHER, SELFPAY | PROVIDERS: PCP Internal Medicine; Visit Provider Nurse Practitioner Family | DX: I10 Essential (primary) hypertension (principal); R00.2 Palpitations; I20.9 Angina pectoris, unspecified | CPT/HCPCS: 99214 ==

== ENCOUNTER 2024-04-07 06:00 | Outpatient (RCR) | payer OTHER, SELFPAY | END 2024-05-07 23:59 | disposition home or self-care (01) | LOC: SPT 06:00 | PROVIDERS: PCP Internal Medicine; Visit Provider Podiatrist Foot & Ankle Surgery | DX: M76.821 Posterior tibial tendinitis, right leg (principal) | CPT/HCPCS: 97110 ==

== ENCOUNTER 2024-09-08 16:03 | Emergency (ER) | payer OTHER, MEDICARE, SELFPAY ==
--- NOTE | 2024-09-08 16:04 | XRR_ITS ---
PROCEDURE INFORMATION: Exam: XR Chest Exam date and time: 09/08/2024 5:09 PM Age: 69 years old Clinical indication: Pain; Chest pressure; Additional info: Chest pain TECHNIQUE: Imaging protocol: Radiologic exam of the chest. Views: 1 view. COMPARISON: CR XR chest 2V* [id number] 01/15/2018 2:47 PM FINDINGS: Lungs: Unremarkable. No consolidation. Pleural spaces: Unremarkable. No pleural effusion. No pneumothorax. Heart/Mediastinum: Unremarkable. No cardiomegaly. Bones/joints: Unremarkable. XR/XR chest 1V portable [id number] IMPRESSION: No acute findings.
--- NOTE | 2024-09-08 16:11 | ECG_ITS ---
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: : 1955 Requested By: Osiel Tijerina Order Number: [id number] Reading MD: KATHERINE MILLER Measurements Intervals [place] Rate: 71 P: 42 VT: 159 QRS: -33 QRSD: 95 T: 31 QT: 442 QTc: 480 Interpretive Statements SINUS RHYTHM LEFT AXIS DEVIATION [QRS AXIS < -30] LOW QRS VOLTAGE IN PRECORDIAL LEADS [QRS DEFLECTION < 1.0 mV IN CHEST LEADS] POSSIBLE ANTERIOR MYOCARDIAL INFARCTION , PROBABLY OLD [30 ms Q WAVE IN V3/V4, OR R < 0.2 mV IN V4] Compared to ECG 08/06/2021 14:19:35 Left-axis deviation now present Low QRS voltage now present Left anterior fascicular block no longer present Myocardial infarct finding still present Electronically Signed On 09-08-2024 22:52:04 CDT by KATHERINE MILLER [email or web address]/store/OM/[id number]
[2024-09-08 16:19] VITALS: BP 132/66; PULSE 75; RESP 18; TEMP 36.7; O2SAT 99; BMI 37.8
[2024-09-08 17:10] LABS: Basophils # 0.1 10^3/uL (0.0-0.1); Basophils % 0.8 %; Eosinophils # 0.2 10^3/uL (0.0-0.8); Eosinophils % 2.4 %; Hematocrit 38.6 % (36-47); Lymphocytes # 3.5 10^3/uL (0.8-4.8); Lymphocytes % 47.5 %; Mean Corpuscular HGB Conc 33.9 g/dL (30-55); Mean Corpuscular Hemoglobin 32.8 pg (27-33); Mean Corpuscular Volume 96.5 fl (85-98); Mean Platelet Volume 9.4 fL (7.4-10.4); Monocytes # 0.5 10^3/uL (0.2-0.9); Monocytes % 6.7 %; Neutrophils # 3.17 10^3/uL (1.8-7.7); Neutrophils % 42.5 %; Nucleated Red Blood Cells % 0 %; Platelet Count 275 10^3/cmm (157-399); Red Cell Distribution Width 12.4 % (12.1-15.1); White Blood Count 7.46 10^3/uL (3.29-11.43)
[2024-09-08 17:26] LABS: Troponin(5th) Baseline 9 ng/L (0-10)
[2024-09-08 17:32] LABS: Alanine Aminotransferase 37 U/L (0-33); Albumin Level 4.8 g/dL (3.5-5.2); Alkaline Phosphatase 76 U/L (35-105); Blood Urea Nitrogen 12 mg/dL (8-23); Calcium 9.8 mg/dL (8.5-10.5); Carbon Dioxide 26 mmol/L (22-29); Chloride 100 mmol/L (98-107); Creatinine Clr Calc Pharmacy 80.0976; Globulin 2.6 g/dL (1.3-4.6); Glomerular Filtration Rate 71.3 mL/min (90-130); Glucose 81 mg/dL (65-115); Osmolality Calculated 295 mOsm/kg (285-295); Sodium 143 mmol/L (136-145); Total Bilirubin 0.5 mg/dL (0.15-1.2); Total Protein 7.4 g/dL (6.6-8.7)
[2024-09-08 17:34] LABS: Anion Gap 20.6 (5-19); Aspartate Amino Transferase 38 U/L (0-32); Potassium 3.6 mmol/L (3.5-5.1)
--- NOTE | 2024-09-08 17:34 | ECG_ITS ---
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: : 1955 Requested By: Osiel Tijerina Order Number: [id number] Reading MD: KATHERINE MILLER Measurements Intervals [place] Rate: 71 P: 34 ME: 153 QRS: -32 QRSD: 101 T: 32 QT: 434 QTc: 472 Interpretive Statements SINUS RHYTHM LEFT AXIS DEVIATION [QRS AXIS < -30] LOW QRS VOLTAGE IN PRECORDIAL LEADS [QRS DEFLECTION < 1.0 mV IN CHEST LEADS] POSSIBLE ANTERIOR MYOCARDIAL INFARCTION , PROBABLY OLD [30 ms Q WAVE IN V3/V4, OR R < 0.2 mV IN V4] Compared to ECG 09/08/2024 16:11:44 No significant changes Electronically Signed On 09-08-2024 23:09:15 CDT by KATHERINE MILLER [id number]
--- NOTE | 2024-09-08 19:24 | ED_ITS ---
HPI - Chest Pain 2 General: Chief Complaint: Chest Pain Stated Complaint: chest pain Time Seen by Provider: 09/08/24 19:20 Source: patient Mode of arrival: ambulatory Limitations: no limitations History of Present Illness: 69-year-old female who states has been h aving chest pain since 130. States the pain has been sharp in nature originally is now is an aching-like pain. She taken nitro with no relief states pain is currently 4 out of 10 denies any shortness of breath denies any cough or fever. Denies any vomiting or diarrhea Associated symptoms: Deny abdominal pain, dyspnea, fever(s), nausea or vomiting Related Data Home Medications ?Medication ?Instructions ?Recorded ?Confirmed aspirin 81 mg tablet,delayed 81 mg PO DAILY 05/28/1905/26/23 release (Adult Low Dose Aspirin) cholecalciferol (vitamin D3) 1,250 1,250 mcg PO DAILY 05/28/19 03/25/24 mcg (50,000 unit) capsule multivitamin 1 tab PO DAILY 05/28/1903/07 rabeprazole 20 mg tablet,delayed 20 mg PO DAILY 03/25/24 release rosuvastatin 5 mg tablet 5 mg PO DAILY 11/30/2003/25 ursodiol 500 mg tablet 500 mg PO DAILY 11/30/20 isosorbide mononitrate 30 mg 15 mg PO DAILY 12/27/2005/26/23 tablet,extended release 24 hr vitamin B complex (B 1 tab PO DAILY 12/27/2003/07 Complex-Vitamin B12 tablet) dulaglutide 1.5 mg/0.5 mL 1.5 mg SUBCUT .Q Weekly 02/0503/25/24 subcutaneous pen injector (Trulicity) metformin 500 mg tablet,extended 1,000 mg PO DAILY 01/2503/25/24 release 24 hr lisinopril 20 1 tab PO DAILY 03/20/2203/07 mg-hydrochlorothiazide 25 mg tablet Apple Cider Vinegar PO 09/24/23 03/25/24 Garlic PO 09/24/23 03/25/24 calcium PO 09/24/23 03/25/24 cinnamon bark 500 mg capsule 500 mg PO DAILY 09/24/23 03/25/24 (Cinnamon) Previous Rx's ?Medication ?Instructions ?Recorded diabetic shoes with L3020 inserts #1 ea 07/09/23 famotidine 40 mg tablet (Pepcid) 40 mg PO DAILY #90 ta bs 09/24/23 nitroglycerin 0.4 mg sublingual 0.4 mg sublingual Q5M PRN chest 09/24/23 tablet pain #25 tabs Allergies Allergy/AdvReac Type Severity Reaction Status Date / Time Penicillins Allergy Unknown Unknown Verified 09/08/24 16:23 sulfamethoxazole (From Allergy Unknown Unknown Verified 09/08/24 16:23 Bactrim) trimethoprim (From Bactrim) Allergy Unknown Unknown Verified 09/08/24 16:23 adhesive Allergy IF LEFT ON Verified 09/08/24 16:23 SKIN FOR TOO LONG CAUSE RASH ciprofloxacin (From Cipro) Allergy Unknown Verified 09/08/24 16:23 latex Allergy RASH Verified 09/08/24 16:23 Review of Systems 2 Const: Denies: fever(s), chills, body aches or change in appetite ENMT: Denies: throat pain or dental pain Card: Reports: chest pain Resp: Denies: dyspnea GI: Denies: abdominal pain, nausea, vomiting or diarrhea Musc: Denies: neck pain or back pain Skin/Breast: Denies: rash Neuro: Denies: headache(s) PFSH ED 2 PFSH: Medical History Dyslipidemia Morbid obesity with BMI of 40.0-44.9, adult Diabetes Sleep apnea HTN (hypertension) Surgical History S/P hysterectomy Family History Father Cancer Mother Heart disease Diabetes Social History Smoking and tobacco/nicotine status: former use of tobacco/nicotine Physical Exam 2 Const: COMMON NORMALS: no acute distress, patient oriented x3 and healthy appearing HENMT: COMMON NORMALS: normocephalic and atraumatic HEAD & SCALP: n ormocephalic and atraumatic Neck/C-Spine: COMMON NORMALS: full ROM and supple Chest: COMMONS NORMALS: normal inspection of the chest Resp: COMMON NORMALS: normal respiratory effort, No retractions, No use of accessory muscles and clear to auscultation bilaterally AUSCULTATION: clear to auscultation bilaterally Cardio: COMMON NORMALS: regular rate, regular rhythm and No murmurs present (Cardio) RATE: regular rate RHYTHM: regular rhythm GI: COMMON NORMALS: Normal to inspection, nondistended, normoactive bowel sounds present, Soft to palpation, non-tender and no masses PALPATION: Yes Soft to palpation Extremity: COMMON NORMALS: normal to inspection and full ROM Neuro: COMMON NORMALS: patient oriented x3, moves all extremities and no focal motor deficits Psych: COMMON NORMALS: mental status grossly normal, Normal thought process present and cooperative THOUGHT PROCESS: Normal thought process present Skin: COMMON NORMALS: no rashes or lesions noted and no wounds GENERAL SKIN EXAM: no rashes or lesions noted Course 2 Vital Signs: Vital signs: Vital Signs Temperature 98.0 F 09/08/24 16:19 Pulse Rate 75 09/08/24 16:19 Respiratory Rate 18 09/08/24 16:19 Blood Pressure 132/66 09/08/24 16:19 Pulse Oximetry 99 09/08/24 16:19 MDM - Chest Pain Medical Decision Making Patient presents for chest pains atypical in nature no sign of acute coronary syndrome EKG troponins are negative she is stable for discharge follow-up PCP return if worsening. Medical Records I reviewed the patient's medical records. Lab Data I reviewed the patient's lab results. 09/08/24 16:53 09/08/24 16:53 Radiology Impressions Chest X-Ray 09/08/24 16:04 IMPRESSION: No acute findings. Laboratory Results WBC 7.46 10^3/uL (3.29-11.43) 09/08/24 16:53 RBC 4.00 10^6/uL (3.85-5.65) 09/08/24 16:53 Hgb 13.10 g/dL (11.27-16.99) 09/08/24 16:53 Hct 38.6 % (36-47) 09/08/24 16:53 MCV 96.5 fl (85-98) 09/08/24 16:53 MCH 32.8 pg (27-33) 09/08/24 16:53 MCHC 33.9 g/dL (30-55) 09/08/24 16:53 RDW 12.4 % (12.1-15.1) 09/08/24 16:53 Plt Count 275 10^3/cmm (157-399) 09/08/24 16:53 MPV 9.4 fL (7.4-10.4) 09/08/24 16:53 Neut % (Auto) 42.5 % 09/08/24 16:53 Lymph % (Auto) 47.5 % 09/08/24 16:53 Mcdonald % (Auto) 6.7 % 09/08/24 16:53 Eos % (Auto) 2.4 % 09/08/24 16:53 Baso % (Auto) 0.8 % 09/08/24 16:53 Neut # (Auto) 3.17 10^3/uL (1.8-7.7) 09/08/24 16:53 Lymph # (Auto) 3.5 10^3/uL (0.8-4.8) 09/08/24 16:53 Mcdonald # (Auto) 0.5 10^3/uL (0.2-0.9) 09/08/24 16:53 Eos # (Auto) 0.2 10^3/uL (0.0-0.8) 09/08/24 16:53 Baso # (Auto) 0.1 10^3/uL (0.0-0.1) 09/08/24 16:53 Nucleated RBC % (auto) 0 % 09/08/24 16:53 Nucleated RBCs # 0.0 /100WBC 09/08/24 16:53 Sodium 143 mmol/L (136-145) 09/08/24 16:53 Potassium 3.6 mmol/L (3.5-5.1) 09/08/24 16:53 Chloride 100 mmol/L (98-107) 09/08/24 16:53 Carbon Dioxide 26 mmol/L (22-29) 09/08/24 16:53 Anion Gap 20.6 (5-19) H 09/08/24 16:53 BUN 12 mg/dL (8-23) 09/08/24 16:53 Creatinine 0.8 mg/dL (0.5-0.9) 09/08/24 16:53 GFR Calculation 71.3 mL/min (90-130) L 09/08/24 16:53 Glucose 81 mg/dL (65-115) 09/08/24 16:53 Calculated Osmolality 295 mOsm/kg (285-295) 09/08/24 16:53 Calcium 9.8 mg/dL (8.5-10.5) 09/08/24 16:53 Total Bilirubin 0.5 mg/dL (0.15-1.2) 09/08/24 16:53 AST 38 U/L (0-32) H 09/08/24 16:53 ALT 37 U/L (0-33) H 09/08/24 16:53 Alkaline Phosphatase 76 U/L (35-105) 09/08/24 16:53 Troponin T Baseline 9 ng/L (0-10) 09/08/24 16:53 Troponin T 120 Minute 8.97 ng/L (0-10) 09/08/24 18:49 Delta Troponin T -0.03 ABS# (0-10) L 09/08/24 18:49 Total Protein 7.4 g/dL (6.6-8.7) 09/08/24 16:53 Albumin 4.8 g/dL (3.5-5.2) 09/08/24 16:53 Globulin 2.6 g/dL (1.3-4.6) 09/08/24 16:53 Lipase 38 U/L (13-60) 09/08/24 18:49 All radiology interpretation(s) finalized by discharge Discharge Plan Discharge Patient Disposition: Home Clinical Impression: Chest pain Condition: Stable Prescriptions: No Action rabeprazole 20 mg tablet,delayed release (DR/EC) 20 mg PO DAILY cholecalciferol (vitamin D3) 1,250 mcg (50,000 unit) capsule 1,250 mcg PO DAILY multivitamin Tablet 1 tab PO DAILY aspirin [Adult Low Dose Aspirin] 81 mg tablet,delayed release (DR/EC) 81 mg PO DAILY Trulicity 1.5 mg/0.5 mL pen injector 1.5 mg SUBCUT .Q Weekly ursodiol 500 mg tablet 500 mg PO DAILY rosuvastatin 5 mg tablet 5 mg PO DAILY metformin 500 mg tablet extended release 24 hr 1,000 mg PO DAILY isosorbide mononitrate 30 mg tablet extended release 24 hr 15 mg PO DAILY vitamin B complex [B Complex-Vitamin B12] Tablet 1 tab PO DAILY lisinopril-hydrochlorothiazide 20-25 mg tablet 1 tab PO DAILY cinnamon bark [Cinnamon] 500 mg capsule 500 mg PO DAILY Garlic PO Apple Cider Vinegar PO calcium PO famotidine [Pepcid] 40 mg tablet 40 mg PO DAILY Qty: 90 3RF nitroglycerin 0.4 mg tablet, sublingual 0.4 mg sublingual Q5M PRN (Reason: chest pain) Qty: 25 3RF Rx Instructions: do not exceed 3 doses per episode (DME) diabetic shoes with L3020 inserts See Rx Instructions .Route .MEDSUPPLY Qty: 1 0RF Rx Instructions: [facility] Discharge Orders: Discharge ED (Routine); Ordered 09/08/24 Ordered By: Liza Bolden Referrals: Tigist Bang MD [Primary Care Provider, Internal Medicine] - 4-7 days Discharge Diet: Advance as tolerated Discharge Activity: Resume usual activity Patient Instructions: Chest Pain (ED) Print Language: Senegalese Coding Level of Care Code ED Finance Effectiveness Manager for Carolina Ortiz
[2024-09-08 19:25] LABS: Troponin 5 2HR 8.97 ng/L (0-10)
[2024-09-08 19:28] LABS: Troponin 5 2HR Delta -0.03 ABS# (0-10)
--- NOTE | 2024-09-08 19:28 | ECG_ITS ---
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
[2024-09-08] MEDS: HYDROcodone-acetaminophen 5-325 mg Tablet 1 TAB PO (19:38)
[2024-09-08] MEDS: aspirin 81 mg Chew Tablet 324 MG PO (19:38)
[2024-09-08 19:42] VITALS: BP 127/59; PULSE 66; RESP 16; O2SAT 99
[2024-09-08 19:45] VITALS: BP 127/59; PULSE 58; RESP 16; O2SAT 95
[2024-09-08 19:59] LABS: Lipase 38 U/L (13-60)
[2024-09-08 20:00] VITALS: BP 127/59; PULSE 65; RESP 18
[2024-09-08 20:15] VITALS: BP 135/65; PULSE 63; RESP 19; O2SAT 93
== END 2024-09-08 20:28 | disposition home or self-care (01) ==
PROVIDERS: Family Medicine; Emergency Provider Emergency Medicine; PCP Internal Medicine
DX: R07.9 Chest pain, unspecified (principal); Z79.82 Long term (current) use of aspirin; Z87.891 Personal history of nicotine dependence; E11.9 Type 2 diabetes mellitus without complications; E78.5 Hyperlipidemia, unspecified; I10 Essential (primary) hypertension
CPT/HCPCS: 36415; 71045; 80053; 83690; 84484; 85025; 93005; 99285; J9999

== ENCOUNTER 2024-11-11 11:55 | Outpatient (CLI) | payer MEDICARE, OTHER, SELFPAY ==
--- NOTE | 2024-11-11 12:01 | MR_ITS ---
WS: [id number] MRI LUMBAR SPINE NONCONTRAST TECHNIQUE: Sagittal T1, T2 and STIR imaging. Axial T1 and T2 imaging. CLINICAL INFORMATION: DEGENERATION OF LUMBAR INTERVERTEBRAL DISC/?COMPRESSION FX COMPARISON: 2015 FINDINGS: Mild central canal stenosis seen on the cervical spine chinchilla machine operator imaging. Thoracolumbar curve. Grade 1 anterolisthesis L4 on L5 and L5 on S1. Some imaging is limited due to body habitus. Schmorl's nodes in the lower thoracic spine. No high-grade central canal stenosis. No acute appearing compression fractures. Only upper sacrum is included on this study. L1-L2: Moderate facet arthropathy. Spinal canal and foramen are patent. L2-L3: No significant disc bulging. Mild facet arthropathy. Mild LEFT bony foraminal narrowing. L3-L4: Minimal annular bulging. Moderate facet arthropathy. Mild LEFT foraminal narrowing. L4-L5: Grade 1 anterolisthesis. Moderate facet arthropathy. Mild LEFT and no significant RIGHT foraminal narrowing. Spinal canal is patent. L5-S1: Grade 1 anterolisthesis. Central disc osteophyte protrusion with slight effacement of the ventral thecal sac. Slight contact of the S1 nerve roots. Moderate facet arthropathy. Small canal is patent. Foramen are patent. MR/MR lumbar spine wo con* [id number] IMPRESSION: Some imaging is limited due to body habitus. 1. Thoracolumbar curve. No acute compression fractures. 2. Grade 1 anterolisthesis L4 on L5 and L5 on S1 slightly progressed at L5-S1 compared to previous. 3. No high-grade central canal stenosis. 4. Moderate facet arthropathy throughout the lumbar spine worse at L4-L5 and L 5-S1. 5. Small central disc osteophyte protrusion L5-S1 slightly contacts the S1 ner ve roots. 6. Mild LEFT L2-3, LEFT L3-4 and LEFT L4-5 foraminal narrowing.
== END 2024-11-11 11:56 | disposition home or self-care (01) ==
LOC: RAD 11:58
PROVIDERS: PCP Internal Medicine; Visit Provider Internal Medicine
DX: M51.369 Other intervertebral disc degeneration, lumbar region without mention of lumbar back pain or lower extremity pain (principal); M47.817 Spondylosis without myelopathy or radiculopathy, lumbosacral region; M47.816 Spondylosis without myelopathy or radiculopathy, lumbar region; M25.78 Osteophyte, vertebrae
CPT/HCPCS: 72148

== ENCOUNTER → 2024-11-18 16:12 | Outpatient (BNVA) | payer MEDICARE, OTHER, SELFPAY | PROVIDERS: PCP Internal Medicine; Visit Provider Internal Medicine Cardiovascular Disease | DX: R07.9 Chest pain, unspecified (principal); I10 Essential (primary) hypertension; I49.9 Cardiac arrhythmia, unspecified; R00.2 Palpitations; Z87.891 Personal history of nicotine dependence; Z79.82 Long term (current) use of aspirin; R06.02 Shortness of breath | CPT/HCPCS: 99214 ==

== ENCOUNTER 2024-11-25 08:55 | Outpatient (CLI) | payer MEDICARE, OTHER, SELFPAY ==
[2024-11-25 09:29] VITALS: BMI 38.2
--- NOTE | 2024-11-25 09:30 | NMCV_ITS ---
NM desi perf SPECT r/s* [id number] Genny Munson Age: 69 Gender: F : 1955 Exam Date: 11/25/2024 10:09 Ordering Phys: Diana Soto MD ([email or web address]) Technologist: BRANT Rhodes Exam Location: [facility] Indications: cp STRESS TEST Please see separate stress test report in [facility] for full findings IMAGE PROTOCOL Rest/Stress 1 Lexiscan Day Radiopharmaceutical Dose (mCi) Administration Site Administered by Rest: Tc-99m 10.3 IV Abbie Ashby, [employer]UL[facility] PARAMEDIC Sestamibi Stress:Tc-99m 32.4 IV Abbie Ashby, INT[employer]BULANCE PARAMEDIC Sestamibi Rest: 25-Nov-2024 60 Discovery 630 Stress: 25-Nov-2024 30 Discovery 630 0.4mg Lexiscan. Images obtained in supine and prone position. SPECT RESULTS Technical Quality: Good Raw Data Analysis: Normal Image Corrections: No attenuation or motion correction applied Summed Stress Score: 3 Summed Rest Score: 5 Summed Difference Score: 0 PERFUSION FINDINGS Small area of fixed perfusion defect noted in the apical region of the left ventricle which is a fixed defect suggestive of possible apical thinning artifact. FUNCTIONAL RESULTS (calculated via Gated SPECT) Stress Image LV EF (%): 74 Stress EDV (mL):87 TID: 0.96 Stress ESV (mL):23 FUNCTIONAL FINDINGS: There is normal left ventricular systolic function. IMPRESSIONS Myocardial perfusion imaging is normal. Diana Soto MD (Electronically Signed) Final Date: 03 December 2024 19:35 S
--- NOTE | 2024-11-25 09:30 | ECG_ITS ---
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 The perfusion scan will be documented separately. DATA: Baseline heart rate was 60 beats per minute. Baseline blood pressure was 143/81 millimeters of mercury. Target heart rate was 152. Maximum heart rate achieved was 106. which was 69% of the predicted target heart rate. Maximum blood pressure was 149/81 millimeters of mercury. The reason for ending the test was completion of the protocol. The patient did not experience any symptoms. ELECTROCARDIOGRAM: BASELINE: Sinus rhythm. Left axis. Interventricular conduction delay otherwise, no ST-T changes suggestive of ischemia noted. No arrhythmia noted. EXERCISE: After Lexiscan injection, no ST-T changes suggestive of ischemic noted. No arrhythmia noted. CONCLUSION: Please note due to baseline abnormality of the EKG specificity and sensitivity of the EKG portion of LexiScan MIBI stress test will be low 1. EKG not suggestive of ischemia 2. Lexiscan injection unremarkable. 3. Perfusion scan will be documented separately. Electronically Signed On 12-18-2024 14:40:04 CDT by DIANA SOTO [email or web address]
[2024-11-25 10:48] VITALS: BP 135/75; PULSE 84
== END 2024-11-25 08:56 | disposition home or self-care (01) ==
LOC: CDL 08:59
PROVIDERS: Family Provider Family Medicine Geriatric Medicine; PCP Internal Medicine; Visit Provider Internal Medicine Cardiovascular Disease
DX: R07.9 Chest pain, unspecified (principal)
CPT/HCPCS: 36415; 78452; 93017; 96374; A9500; J2785

== ENCOUNTER 2024-12-13 09:36 | Outpatient (CLI) | payer MEDICARE, OTHER, SELFPAY ==
--- NOTE | 2024-12-13 09:42 | MM_ITS ---
WS: [id number] Bilateral screening 3D tomosynthesis digital mammogram, 12/13/2024 9:42 AM Clinical Data: SCREENING Comparison: 12/09/2023, 12/03/2022, 10/16/2021, 09/11/2020, 07/17/2018, 06/17/2017, 03/29/2016, 10/03/2014, 09/09/2013, 07/27/2010, 06/29/2009, 09/29/2007, 06/18/2005, 08/15/2003. Findings: No spiculated masses or clustered calcifications are seen. There are no secondary signs of carcinoma. There are ductal calcifications noted adjacent to the right nipple. MM/MM scr BI tomosynthesis [id number] Impression: Negative bilateral mammogram unchanged. Recommend annual screening mammograms. BIRADS: 1 - Negative. FOLLOW UP: 1 Year Follow-up DENSITY: There are scattered areas of fibroglandular density. The CAD [employer] ticket checker was used
== END 2024-12-13 09:37 | disposition home or self-care (01) ==
LOC: RAD 09:37
PROVIDERS: PCP Internal Medicine; Visit Provider Nurse Practitioner Family
DX: Z12.31 Encounter for screening mammogram for malignant neoplasm of breast (principal); R92.323 Mammographic fibroglandular density, bilateral breasts
CPT/HCPCS: 77063; 77067

== ENCOUNTER 2024-12-17 07:47 | Outpatient (CLI) | payer MEDICARE, OTHER, SELFPAY ==
--- NOTE | 2024-12-17 08:00 | USCV_ITS ---
Genny Munson Age: 69 Gender: F : 1955 Exam Date: 12/17/2024 08:38 Ordering Phys: Diana Soto MD ([email or web address]) Technologist: DARRYL Exam Location: [facility] [place] Indication: sob BP: 142 / 78 HR: 64 Rhythm: Sinus Technical Quality: Adequate MEASUREMENTS (Male / Female) Normal Values 2D ECHO LV Diastolic Diameter PLAX 4.3 cm 4.2 - 5.9 / 3.9 - 5.3 cm IVS Diastolic Thickness 1.2 cm 0.6 - 1.0 / 0.6 - 0.9 cm IVS Systolic Thickness 1.7 cm LVPW Diastolic Thickness 1.2 cm 0.6 - 1.0 / 0.6 - 0.9 cm LVPW Systolic Thickness 1.8 cm LVOT Diameter 2.2 cm LV Ejection Fraction 2D Teich 72.7 % LV Ejection Fraction MOD 4C 67.3 % LV Ejection Fraction MOD 2C 66.8 % LV Ejection Fraction 2C AL 69.2 % LA Diameter 4.0 cm RA Systolic Volume 4C AL 61.6 ml RA Systolic Volume 4C MOD 63.5 ml LA Sys Volume AL 37.5 cm cubed LA Sys Volume Index AL 16.6 cm cubed/m squared Aorta at Sinotubular Diameter 2.3 cm IVC Diameter 1.7 cm M-MODE LA Ao Ratio MM 1.4 AV Cusp Separation MM 1.3 cm DOPPLER LVOT Peak Velocity 86.0 cm/s MV Peak Velocity 110.0 cm/s MV Area PHT 5.3 cm squared Mitral E to A Ratio 0.6 TV Peak Velocity 327.5 cm/s TR Peak Velocity 378.0 cm/s TR Peak Gradient 57.2 mmHg TR Mean Velocity 308.0 cm/s TR Mean Gradient 39.5 mmHg TR Velocity Time Integral 107.8 cm PV Peak Velocity 85.7 cm/s RV Ejection Time 0.3 s FINDINGS Left Ventricle Normal left ventricular size and systolic function, EF 65%. Mild left ventricular hypertrophy. Normal diastolic function. Right Ventricle Normal right ventricular size and systolic function. Normal right ventricular systolic pressure. Right Atrium Normal right atrial size. Left Atrium Mildly increased left atrial size. Mitral Valve Trace mitral valve regurgitation. Aortic Valve Mild aortic valve calcification. No aortic valve stenosis. No aortic valve regurgitation. Tricuspid Valve Trace tricuspid valve regurgitation. Pulmonic Valve No pulmonary valve regurgitation. No pulmonary valve stenosis. Pericardium No pericardial effusion. Aorta Normal size aortic root and proximal ascending aorta. IVC Normal inferior vena cava. CONCLUSIONS 1. Normal biventricular cavity size and systolic function. 2. Mild left ventricular hypertrophy. 3. Normal left ventricular diastolic function 4. No significant valvular abnormalities. Iron Up MD, FACC (Electronically Signed) Final Date: 19 December 2024 18:04 S
== END 2024-12-17 07:48 | disposition home or self-care (01) ==
LOC: RAD 07:48
PROVIDERS: PCP Internal Medicine; Visit Provider Internal Medicine Cardiovascular Disease
DX: R06.02 Shortness of breath (principal); I51.7 Cardiomegaly; I35.8 Other nonrheumatic aortic valve disorders
CPT/HCPCS: 93306